=== PATIENT | female | born 1995 | race Caucasian/White ===

== ENCOUNTER 2021-10-19 15:04 | Emergency (ER) | payer OTHER ==
[~2021-10-19] VITALS: Ht 165.1 cm; Wt 45.4 kg
[2021-10-19 15:39] LABS: *URINE HCG, QUAL NEGATIVE (NEGATIVE)
--- NOTE | 2021-10-19 15:51 | NUR ---
Pt to CT
[2021-10-19] MEDS ORDERED: ONDA4TAB11 PO (16:27)
--- NOTE | 2021-10-19 16:50 | NUR ---
Patient discharged to home in stable condition. Written and verbal after care instructions given. Patient verbalizes understanding of instructions. Stressed follow up or return to ER for worsening s/s.
== END 2021-10-19 16:51 | disposition home or self-care (01) ==
LOC: ER 15:04
DX: S06.0X0A Concussion without loss of consciousness, initial encounter (principal); W22.8XXA Striking against or struck by other objects, initial encounter; Y92.513 Shop (commercial) as the place of occurrence of the external cause; Y99.0 Civilian activity done for income or pay
CPT/HCPCS: 70450; 84703; A4663

== ENCOUNTER 2021-11-08 10:34 | Emergency (ER) | payer OTHER ==
[~2021-11-08] VITALS: Ht 165.1 cm; Wt 47.6 kg
[~2021-11-08 10:34] MED LIST: ONDA4TAB11 PO
[2021-11-08] MEDS ORDERED: METOCLOPRAMIDE HCL 10 MG/2 ML VIAL IV ONE (11:15)
[2021-11-08] MEDS ORDERED: IV NORMAL SALINE 1000 ML BAG IV ONE (11:15)
[2021-11-08] MEDS ORDERED: KETOROLAC TROMETHAMINE 15 MG INJ IVP ONE (11:15)
[2021-11-08] MEDS ORDERED: diphenhydrAMINE 50 MG/1 ML VIAL IV ONE (11:15)
[2021-11-08] MEDS ORDERED: diphenhydrAMINE 50 MG/1 ML VIAL ONE (11:24)
[2021-11-08] MEDS ORDERED: KETOROLAC TROMETHAMINE 15 MG INJ ONE (11:25)
[2021-11-08] MEDS ORDERED: METOCLOPRAMIDE HCL 10 MG/2 ML VIAL ONE (11:25)
--- NOTE | 2021-11-08 12:31 | NUR ---
IV removed. Catheter intact and site benign. Pressure and 4x4 gauze applied to site. No bleeding noted.
== END 2021-11-08 12:32 | disposition home or self-care (01) ==
LOC: ER 10:34
DX: S06.0X0D Concussion without loss of consciousness, subsequent encounter (principal); W22.8XXD Striking against or struck by other objects, subsequent encounter; R51.9 Headache, unspecified
CPT/HCPCS: 96361; 96374; 96375; 99284; J1200; J1885; J2765; A4663; J7030